=== PATIENT | male | born 1955 | race Caucasian/White ===

== ENCOUNTER → 2024-04-29 | Outpatient (CLI) | payer BC ==
--- NOTE | 2024-04-29 09:17 | US ---
EXAMINATION TYPE: US abdomen complete DATE OF EXAM: 04/29/2024 COMPARISON: NONE CLINICAL INDICATION: Male, 69 years old with history of R06.02 SHORTNESS OF BREATH R10.13 EPIGASTRIC R14.0; Pt states bloating post prandial TECHNIQUE: Grayscale and color Doppler imaging of the abdomen was performed. FINDINGS: EXAM MEASUREMENTS: Liver Length: 14.5 cm Gallbladder Wall: 0.2 cm CBD: 0.3 cm, color Doppler imaging was utilized to isolate the common bile duct for measurement. Spleen: 9.0 cm Right Kidney: 10.8 x 5.9 x 6.3 cm Left Kidney: 10.3 x 5.8 x 5.5 cm MANAGER SOLAR NOTES: Pancreas: Difficult to visualize due to overlying bowel content and pt's body habitus Liver: Visualized mostly intercostally, visualized portions appeared heterogeneous Gallbladder: possible non-mobile echogenic foci within neck Evidence for sonographic Samuel's sign: No CBD: wnl Spleen: wnl Right Kidney: wnl, No hydronephrosis, calculi or masses seen Left Kidney: wnl, No hydronephrosis, calculi or masses seen Upper IVC: wnl Abd Aorta: Proximal portion gassed out, otherwise appeared wnl Suboptimal evaluation of the pancreas on initial images. No aneurysmal change in the mid to distal ab dominal aorta. The IVC is seen near the hepatic dome. Visualized liver is heterogeneously hyperechoic . This limits evaluation for focal masses. No ascites is present. Gallbladder has nonmobile nonshadow ing 10 mm focus in the neck could reflect gallstone or polyp. No additional shadowing mobile gallston es. No pericholecystic fluid or abnormal gallbladder wall thickening. Common bile duct measures withi n normal limits. Kidneys symmetric without hydronephrosis or concerning mass. Spleen is normal in siz e. IMPRESSION: Suboptimal study. Possible lodged gallstone in the gallbladder neck. No sonographic evidence for acut e cholecystitis. Consider MRI/MRCP follow-up to further evaluate. [facility], , 04/29/2024 9:15 AM
--- NOTE | 2024-04-29 10:00 | CT ---
EXAMINATION TYPE: CT chest wo con DATE OF EXAM: 04/29/2024 COMPARISON: NONE CLINICAL INDICATION: Male, 69 years old with history of R06.02 SHORTNESS OF BREATH R10.13 EPIGASTRIC R14.0, SHORTNESS OF BREATH, PT STATES IN 2019 HE HAD FLUID REMOVED FROM LT LUNG TECHNIQUE: CT scan of the thorax is performed without IV contrast. CT DLP: 493.50 mGycm. Automated Exposure Control for Dose Reduction was Utilized. FINDINGS: LUNGS: Mild underlying emphysematous change greatest in the upper lungs. Mild to moderate linear scar ring and/or atelectasis in the left mid to lower lung. Some focal consolidation/atelectasis posterior right lung base. No pleural effusion or pneumothorax seen bilaterally.. HEART: Mild cardiomegaly. Moderate coronary artery calcifications present. Ascending aorta measures up to 4.5 cm AP diameter axial image 23. MEDIASTINUM: A few calcified left hilar lymph nodes are seen. No pericardial effusion is seen. OTHER: Dependent 7 mm calculus in the gallbladder axis image 51. A few colonic diverticula are apprec iated. There is multilevel spurring in the thoracic spine noted. There is ossific bridge between the posterior left fifth and sixth ribs. Small degree of asymmetric right-sided subareolar gynecomastia i s noted. IMPRESSION: Mild cardiomegaly without suspicious acute pulmonary process. Chronic findings noted as d etailed above. [facility], , 04/29/2024 9:58 AM
--- NOTE | 2024-04-29 10:54 | FL ---
EXAMINATION TYPE: FL UGI DATE OF EXAM: 04/29/2024 CLINICAL HISTORY: R06.02 SHORTNESS OF BREATH R10.13 EPIGASTRIC R14.0 TECHNIQUE: A double contrast UGI study is performed. COMPARISON: None FINDINGS: Engraving Patternmaker image of the abdomen shows no gross abnormality.The esophagus shows normal motility and emptying into the stomach. No evidence of stricture noted or filling defect to suggest mass.Smal l reducible hiatal hernia noted. The stomach shows normal distensibility, peristalsis, and mucosal fo lds. No evidence of any mass or ulcer disease. No significant gastroesophageal reflux was seen duri ng real time performance of this study.The duodenal bulb, sweep, and proximal small bowel loops are u nremarkable. IMPRESSION: Small reducible hiatal hernia noted. [facility], , 04/29/2024 10:52 AM
== END | disposition home or self-care (01) ==
LOC: RADUSWWP 08:20
PROVIDERS: ATTEND Family Medicine
DX: K44.9 Diaphragmatic hernia without obstruction or gangrene (principal); R06.02 Shortness of breath; R10.13 Epigastric pain; R14.0 Abdominal distension (gaseous); I51.7 Cardiomegaly
CPT/HCPCS: 71250; 74240; 76700

== ENCOUNTER → 2024-06-08 | Outpatient (CLI) | payer BC ==
--- NOTE | 2024-06-09 07:40 | CA ---
Transthoracic Echo Report Name: Jose Bonilla Age: 69 Gender: M : 1955 Exam Date: 06/08/2024 17:03 Exam Location: [place] [facility] Ht (in): 67 Wt (lb): 210 Ordering Physician: Maribell Corea DO Attending/Referring Phys: Maribell Corea DO Sales Support Rep Marlin Adams RDCS Procedure CPT: Indications: R06.02 SHORTNESS OF BREATH Cardiac Hx: Technical Quality: Good Contrast 1: Total Dose (mL): Contrast 2: Total Dose (mL): MEASUREMENTS (Male / Female) Normal Values 2D ECHO LV Diastolic Diameter PLAX 4.1 cm 4.2 - 5.9 / 3.9 - 5.3 cm LV Systolic Diameter PLAX 3.2 cm IVS Diastolic Thickness 1.1 cm 0.6 - 1.0 / 0.6 - 0.9 cm LVPW Diastolic Thickness 1.1 cm 0.6 - 1.0 / 0.6 - 0.9 cm LV Relative Wall Thickness 0.5 RV Internal Dim ED PLAX 3.9 cm LA Systolic Diameter LX 4.1 cm 3.0 - 4.0 / 2.7 - 3.8 cm LV Diastolic Volume MOD BP 113.7 cm??? 67 - 155 / 56 - 104 cm??? LV Systolic Volume MOD BP 74.9 cm??? 22 - 58 / 19 - 49 cm??? LV Ejection Fraction MOD BP 34.1 % >= 55 % LV Cardiac Index MOD BP 953.1 cm???/min???m??? LV Diastolic Volume MOD 4C 139.2 cm??? LV Systolic Volume MOD 4C 74.5 cm??? LV Ejection Fraction MOD 4C 46.5 % LV Cardiac Index MOD 4C 1590.3 cm???/min???m??? LV Diastolic Length 4C 8.8 cm LV Systolic Length 4C 7.3 cm LV Diastolic Volume MOD 2C 100.0 cm??? LV Systolic Volume MOD 2C 43.2 cm??? LV Ejection Fraction MOD 2C 56.8 % LV Cardiac Index MOD 2C 1396.9 cm???/min???m??? LV Diastolic Length 2C 8.5 cm LV Systolic Length 2C 5.3 cm LA Volume 74.1 cm??? 18 - 58 / 22 - 52 cm??? LA Volume Index 34.4 cm???/m??? 16 - 28 cm???/m??? M-MODE Aortic Root Diameter MM 3.5 cm AV Cusp Separation MM 1.9 cm DOPPLER AV Peak Velocity 142.6 cm/s AV Peak Gradient 8.1 mmHg AI Peak Velocity 218.8 cm/s AI Peak Gradient 19.2 mmHg AI Pressure Half Time 1267.2 ms MV Area PHT 2.5 cm??? Mitral E Point Velocity 98.7 cm/s Mitral A Point Velocity 107.8 cm/s Mitral E to A Ratio 0.9 MV Deceleration Time 305.9 ms TR Peak Velocity 238.9 cm/s TR Peak Gradient 22.8 mmHg Right Ventricular Systolic Press 27.4 mmHg FINDINGS Left Ventricle Left ventricular ejection fraction is estimated at 55-60.left ventricular cavity size normal. Normal left ventricular systolic function with no obvious regional wall motion abnormalities. Right Ventricle Mild right ventricular dilatation. Right ventricular systolic pressure within normal limits. Right Atrium Normal right atrial size. No right atrial thrombus or mass seen. Interatrial septal aneurysmal formation Left Atrium Mildly increased left atrial diameter. Moderately increased left atrial volume. Mildly increased left atrial area. No left atrial thrombus or mass present. Mitral Valve Structurally normal mitral valve. No evidence for mitral valve prolapse. No mitral stenosis. Mild to moderate mitral regurgitation. Aortic Valve Trileaflet aortic valve. No aortic stenosis. Mild aortic regurgitation. Tricuspid Valve Structurally normal tricuspid valve. Mild tricuspid regurgitation. Pulmonic Valve Structurally normal pulmonic valve. No pulmonic regurgitation. Pericardium No pericardial effusion. Aorta Normal size aortic root and proximal ascending aorta. CONCLUSIONS 1. Normal left ventricular size and systolic function 2. Mild to moderate mitral regurgitation 3. Mild aortic regurgitation 4. Mild tricuspid regurgitation with no evidence of pulmonary hypertension Previewed by: Dr. Josy Vaughan MD (Electronically Signed) Final Date: 09 June 2024 07:39
== END | disposition home or self-care (01) ==
LOC: RADECHMAIN 17:05
PROVIDERS: ATTEND Family Medicine
DX: I08.3 Combined rheumatic disorders of mitral, aortic and tricuspid valves (principal); R06.02 Shortness of breath; I10 Essential (primary) hypertension
CPT/HCPCS: 93306

== ENCOUNTER → 2024-06-17 | Outpatient (CLI) | payer BC ==
--- NOTE | 2024-06-17 12:18 | MR ---
EXAMINATION TYPE: MR abdomen wo/w con DATE OF EXAM: 06/17/2024 10:11 AM COMPARISON: Ultrasound abdomen April 29, 2024 CLINICAL INDICATION: Male, 69 years old with history of R14.0 ABDOMINAL DISTENSION (GASEOUS) R10.13 E PIGAS, Abdominal distention, epigastric pain. Bloating. IV Contrast: 9.5 cc Gadobutrol (None if empty) CONTRAST: Standard multiplanar, multisequence MRI departmental protocol images were obtained without contrast a nd with 9.5 mL intravenous Gadobutrol gadolinium contrast. FINDINGS: Lung bases are grossly clear. Liver is normal in size without suspicious mass. There is sin gle small intraluminal gallstone. Gallbladder shows no abnormal wall thickening. Pancreas and both ad renal glands appear within normal limits. Spleen is normal in size. Kidneys are symmetric and normal in size without hydronephrosis. There are a few subcentimeter thin-walled cysts bilaterally present. Scattered colonic diverticula greatest distally are seen. There is no abnormal small or large bowel d ilatation. No AAA is noted. No suspicious enhancing masses or abdominal adenopathy. No ascites. IMPRESSION: Confirmation of suspected 8mm gallstone towards the gallbladder neck otherwise unremarkab le study. [facility], , 06/17/2024 12:16 PM
== END | disposition home or self-care (01) ==
LOC: RADMRIMAIN 08:50
PROVIDERS: ATTEND Family Medicine
DX: R14.0 Abdominal distension (gaseous) (principal); R10.13 Epigastric pain
CPT/HCPCS: 74183; A9585 ×2